=== PATIENT | female | born 1945 | race Caucasian/White ===

== ENCOUNTER 2016-03-30 05:41 | Observation (INO) | payer OTHER ==
[~2016-03-30] VITALS: Ht 167.6 cm; Wt 72.2 kg
[~2016-03-30 05:41] MED LIST: ASCO500C PO; ASPI-110 PO; BUSP1TAB PO; CALTTAB PO; CITA20TA4 PO; CLAR10CA3 PO; FISH1000 PO; LOSA50TA2 PO; MULT1TAB84 PO; PRAV10TA PO
[2016-03-30] MEDS ORDERED: METOPROLOL TARTRATE 25 MG TAB PO PRN (06:15)
[2016-03-30] MEDS ORDERED: INSULIN HUMAN REGULAR 1,000 UNITS/10 ML VIAL SQ PRN (06:15)
[2016-03-30 06:23] LABS: AUTOMATED NEUTROPHIL # 3.1 TH/MM3 (1.8-7.7); BASOPHIL # 0.1 TH/MM3 (0-0.2); BASOPHIL % 1.2 % (0.0-2.0); EOSINOPHIL # 0.4 TH/MM3 (0-0.4); EOSINOPHIL % 6.1 % (0.0-4.0); HEMATOCRIT 38.4 % (35.0-46.0); HEMO FLAGS DIFF FINAL; LYMPH % 31.3 % (9.0-44.0); MEAN CELL VOLUME 87.1 FL (80.0-100.0); MEAN CORPUSCULAR HEMOGLOBIN 29.1 PG (27.0-34.0); MEAN CORPUSCULAR HGB CONC 33.4 % (32.0-36.0); MONO % 11.6 % (0.0-8.0); NEUT % 49.8 % (16.0-70.0); PLATELET COUNT 269 TH/MM3 (150-450); RED CELL DISTRIBUTION WIDTH 13.8 % (11.6-17.2); WHITE BLOOD COUNT 6.3 TH/MM3 (4.0-11.0)
[2016-03-30 06:31] VITALS: BP 143/80; PULSE 67; RESP 18; TEMP 97.8; O2SAT 98
[2016-03-30] MEDS: LACTATED RINGER'S 1000 ML IV SCH (06:31)
[2016-03-30 06:35] LABS: APTT (PATIENT) 24.8 SEC (24.3-30.1); INTERNATIONAL NORMALIZED RATIO 0.9 RATIO; PROTHROMBIN TIME - PATIENT 10.1 SEC (9.8-11.6)
[2016-03-30 06:46] LABS: BICARBONATE 24.2 MEQ/L (21.0-32.0); POTASSIUM 3.9 MEQ/L (3.5-5.1)
[2016-03-30] MEDS ORDERED: ceFAZolin 1,000 MG/NS 100 ML IV SCH ×2 (07:00)
[2016-03-30] MEDS ORDERED: SODIUM CHLORID 0.9% 500 ML IV SCH (08:00)
--- NOTE | 2016-03-30 08:03 | EKG ---
Date Performed: 03/30/2016 Time Performed: 06:46:05 PTAGE: 70 years EKG: Sinus rhythm WITH OCCASIONAL VENTRICULAR PREMATURE COMPLEXES BORDERLINE ECG COMPARED TO PRIOR ELECTROCARDIOGRAM, PVC is present. PREVIOUS TRACING : 04/13/2015 09.27 DOCTOR: Omar Quintana Interpretating Date/Time 03/30/2016 08:01:26
[2016-03-30] MEDS ORDERED: PROPOFOL 200 MG/20 ML AMP IV ONE (12:00)
[2016-03-30] MEDS ORDERED: ePHEDrine/NS 25 MG/5 ML SYR IV ONE (12:00)
[2016-03-30] MEDS ORDERED: HEPARIN SODIUM - IV 10,000 UNITS/10 ML VIAL ONE (13:45)
[2016-03-30] MEDS ORDERED: BUPIVACAINE/EPINEPHRINE 0.5% PF 30 ML VIAL ONE (13:45)
[2016-03-30] MEDS ORDERED: HEPARIN SODIUM - SQ 10,000 UNITS/ML VIAL ONE (13:45)
[2016-03-30] MEDS ORDERED: PROTAMINE SULFATE 50 MG/5 ML VIAL ONE (13:46)
[2016-03-30] MEDS ORDERED: FAMOTIDINE 20 MG/2 ML VIAL ONE (13:49)
[2016-03-30] MEDS ORDERED: DEXAMETHASONE SOD PHOS 4 MG/ML VIAL ONE (13:49)
[2016-03-30] MEDS ORDERED: MIDAZOLAM HCL 2 MG/2 ML VIAL ONE (13:49)
[2016-03-30] MEDS ORDERED: IOHEXOL 300 MG/ML 100 ML BTL (for Rad CT) OTHER ONE (14:30)
[2016-03-30] MEDS ORDERED: DO NOT ADM ANY ANTICOAGULANT DRUGS XX PRN (15:26)
[2016-03-30] MEDS ORDERED: POTASSIUM CHLORIDE 20 MEQ CONTROLLED RELEASE TAB PO PRN (16:00)
[2016-03-30] MEDS ORDERED: METOCLOPRAMIDE HCL 10 MG/2 ML VIAL IVS PRN (16:00)
[2016-03-30] MEDS ORDERED: SODIUM NITROPRUSSIDE 50 MG/250 ML D5W IV SCH ×2 (16:00)
[2016-03-30] MEDS ORDERED: ENALAPRILAT 1.25 MG/ML VIAL IV PRN (16:00)
[2016-03-30] MEDS ORDERED: cloNIDine HCL 0.1 MG TAB PO PRN (16:00)
[2016-03-30] MEDS ORDERED: ATROPINE SULFATE 1 MG/ML VIAL IV PUSH PRN (16:00)
[2016-03-30] MEDS ORDERED: LIDOCAINE HCL 1% 50 ML VIAL INFIL PRN (16:00)
[2016-03-30] MEDS ORDERED: SODIUM CHLOR 0.9% 250 ML IV PRN (16:00)
[2016-03-30] MEDS ORDERED: LORazepam 2 MG/ML VIAL IVP PRN (16:00)
[2016-03-30] MEDS ORDERED: MORPHINE SULFATE 4 MG/ML INJ IV PUSH PRN (16:00)
[2016-03-30] MEDS ORDERED: SODIUM CHLORIDE 0.9% 1000 ML @ 75 ML/HR IV SCH (16:00)
[2016-03-30] MEDS ORDERED: SODIUM CHLORIDE 5 ML FLUSH PRN IVF (16:00)
[2016-03-30] MEDS ORDERED: LABETALOL HCL 100 MG/20 ML VIAL IVP PRN (16:00)
[2016-03-30] MEDS ORDERED: oxyCODONE/ACETAMINOPHEN 5 MG/325 MG TAB PO PRN (16:00)
[2016-03-30] MEDS ORDERED: HOLD GLUCOPHAGE, GLUCOPHAGE XR, AND AVANDAMET XX PRN (16:00)
[2016-03-30] MEDS ORDERED: ONDANSETRON HCL 4 MG/2 ML VIAL IV PRN (16:00)
[2016-03-30] MEDS: SODIUM CHLORIDE 5 ML FLUSH BID IVF SCH (21:00)
[2016-03-30 22:40] VITALS: BP 112/48; PULSE 76; RESP 18; TEMP 98.2; O2SAT 100
[2016-03-31 03:00] VITALS: BP 122/64; PULSE 71; RESP 18; TEMP 98.4; O2SAT 98
[2016-03-31 07:00] VITALS: PULSE 70
[2016-03-31 07:15] VITALS: BP 126/74; PULSE 70; RESP 18; TEMP 97.7; O2SAT 97
[2016-03-31 08:00] VITALS: PULSE 66
[2016-03-31] MEDS: LACTATED RINGER'S 1000 ML IV SCH ×2 (08:00→10:03)
[2016-03-31 09:00] VITALS: PULSE 90
[2016-03-31] MEDS ORDERED: ASPIRIN EC 81 MG TABEC PO SCH (09:00)
[2016-03-31] MEDS: SODIUM CHLORIDE 5 ML FLUSH BID IVF SCH (09:27)
--- NOTE | 2016-04-03 13:36 | MP ---
cc: VIANCA GUALLPA M.D. DATE OF SURGERY March 30, 2016 PREOPERATIVE DIAGNOSIS Disabling left lower extremity ischemia. POSTOPERATIVE DIAGNOSIS Disabling left lower extremity ischemia. OPERATIVE PROCEDURE Left SFA percutaneous balloon angioplasty. SURGEON Vianca Guallpa MD ANESTHESIA Local MAC. DESCRIPTION OF THE OPERATIVE PROCEDURE With the patient in the supine position and under IV sedation, the lower abdomen, both groins and left lower extremity were prepped with Betadine and draped in a sterile fashion. Following a protocol time-out, the skin and subcutaneous tissue surrounding the proposed left common femoral access site was preemptively infiltrated with 0.5% Marcaine with epinephrine. Utilizing ultrasound guidance, an 18-gauge needle was inserted into the left mid-common femoral lumen in a J-wire advanced under fluoroscopic guidance into the proximal superficial femoral artery. A 5-Thai hemostatic sheath was deployed over the J-wire. Diluted contrast was injected through the sheath side-arm in conjunction with digital C-arm fluoroscopic imaging. This revealed a focal high-grade approximately 80-90% stenosis within the SFA, approximately 60 mm distal to the SFA origin. A second, 40% constriction was present more proximally. The previously angioplastied distal SFA stenoses were widely patent. The patient was systemically heparinized with 4000 units. The SFA stenoses were balloon angioplastied with a 4 x 20-mm balloon inflated to nominal 6 atmospheres, two separate inflations of 2 minutes each, followed by balloon angioplastied with a 4 x 40-mm drug coated balloon inflated to 8 atmospheres, 3-minute inflation. Completion angiogram revealed wide patency of the two stenotic areas with no residual stenosis and rapid flow distally into a non-diseased distal SFA, popliteal trifurcation with three-vessel runoff to both feet. Heparin was not reversed. The hemostatic sheath was sutured with a skin suture of 4-0 Prolene and sterile dressing applied. There were no operative complications and the patient returned to the recovery room in stable condition having tolerated the procedure well. Vianca Guallpa MD JTS/SSB /4:32 PM /1:30 PM
== END 2016-03-31 09:52 | disposition home or self-care (01) ==
LOC: HCVO 05:41 → HCIS 23:08
PROVIDERS: ADMIT Surgery Vascular Surgery; ATTEND Surgery Vascular Surgery
DX: I73.9 Peripheral vascular disease, unspecified (principal); I10 Essential (primary) hypertension; Z98.62 Peripheral vascular angioplasty status
CPT/HCPCS: 01924; 37224; 75710; 76937; 80048; 85025; 85610; 85730; 86850; 86900; 86901; 93005; C1725; C1769; C2623; G0378; J0690; J1100; J1644; J2250; J2720; J3010; J7120; Q9967